=== PATIENT | male | born 1975 | race Caucasian/White ===

== ENCOUNTER 2017-04-17 13:30 | Emergency (ER) | payer BC ==
[2017-04-17] MEDS ORDERED: Adacel (T-DAP) 0.5 ML VIAL ONE (13:56)
[2017-04-17] MEDS ORDERED: Lidocaine 1% (PF) 30 ML VIAL ONE (14:36)
[2017-04-17] MEDS ORDERED: Lidocaine 1% w/Epinephrine 1:100K 20 ML VIAL ONE (14:36)
--- NOTE | 2017-04-17 14:38 | RAD ---
RADIOGRAPH LEFT HAND 3 VIEWS: Date: 04/17/17 Time: 1400 hours HISTORY: 41-year-old male status post acute laceration injury to the left hand. FINDINGS: There is no fracture or dislocation. No radiopaque foreign body. IMPRESSION: Negative. POS: [facility]
[2017-04-17] MEDS ORDERED: Bacitracin Zinc 1 Packet ONE (15:07)
== END 2017-04-17 15:44 | disposition home or self-care (01) ==
LOC: ERS 13:30
DX: S61.412A Laceration without foreign body of left hand, initial encounter (principal); Z87.891 Personal history of nicotine dependence; W29.8XXA Contact with other powered hand tools and household machinery, initial encounter
CPT/HCPCS: 12001; 90471; 90715; J2001